=== PATIENT | male | born 1965 | race Two or more races ===

== ENCOUNTER 2023-06-11 15:46 | Inpatient (IN) | payer OTHER ==
[2023-06-11] MEDS ORDERED: ACETAMINOPHEN 500 MG TABLET (FP) PO ONE (16:46)
[2023-06-11] MEDS ORDERED: ASPIRIN 81 MG CHEWABLE TABLETS PO ONE (17:02)
[2023-06-11] MEDS ORDERED: ASPIRIN 81 MG CHEWABLE TABLETS ONE (17:31)
[2023-06-11] MEDS ORDERED: ACETAMINOPHEN 500 MG TABLET (FP) ONE (17:32)
[2023-06-11 18:51] LABS: BASO % 0.6 % (0-2.0); EOS % 0.9 % (0-4.5); HEMATOCRIT 37.2 % (35.4-49); HEMOGLOBIN 12.6 GM/dL (11.7-16.9); LYMPH % 29.6 % (8-40); MCH 28.6 pg (25.7-33.7); MCHC 33.8 g/dl (32.0-35.9); MEAN CELL VOLUME 84.7 fl (80-96); MEAN PLT VOLUME 8.4 fl (7.5-11.1); MONO % 7.8 % (3.8-10.2); NEUT % 61.1 % (42.8-82.8); PLATELET COUNT 263 10^3/uL (134-434); RBC 4.39 M/mm3 (4.00-5.60); RDW 14.3 % (11.9-15.9); WHITE BLOOD COUNT 7.6 K/mm3 (4.0-10.0)
[2023-06-11 18:57] LABS: INR 1.06 (0.83-1.09); PROTHROMBIN TIME (PATIENT) 12.3 SEC (9.7-13.0)
[2023-06-11 18:59] LABS: ACTIVATED PTT 29.6 SECONDS (25.2-36.5)
[2023-06-11 19:15] LABS: POTASSIUM 3.4 mmol/L (3.5-5.1)
[2023-06-11 19:16] LABS: CALCIUM 8.4 mg/dL (8.5-10.1)
[2023-06-11 19:17] LABS: ALBUMIN 3.2 g/dl (3.4-5.0); BLOOD UREA NITROGEN 24.8 mg/dL (7-18); MAGNESIUM 1.9 mg/dL (1.8-2.4)
[2023-06-11 19:20] LABS: CREATININE 1.1 mg/dL (0.55-1.3)
[2023-06-11 19:21] LABS: BILIRUBIN,TOTAL 0.3 mg/dL (0.2-1)
[2023-06-11 19:22] LABS: TOT PROT 6.9 g/dl (6.4-8.2)
[2023-06-11] MEDS ORDERED: hydrALAZINE HCL 50 MG TABLET (FP) PO SCH (23:15)
[2023-06-11 23:48] VITALS: BMI 36.6
[2023-06-12] MEDS ORDERED: ACETAMINOPHEN 325 MG TABLET (FP) PO PRN (00:02)
[2023-06-12] MEDS ORDERED: hydrALAZINE HCL 20 MG/ML VIAL IVPUSH ONE (03:30)
[2023-06-12 07:04] LABS: HEMATOCRIT 38.2 % (35.4-49); HEMOGLOBIN 12.7 GM/dL (11.7-16.9); MCH 28.5 pg (25.7-33.7); MCHC 33.2 g/dl (32.0-35.9); MEAN CELL VOLUME 85.7 fl (80-96); MEAN PLT VOLUME 8.5 fl (7.5-11.1); PLATELET COUNT 255 10^3/uL (134-434); RBC 4.46 M/mm3 (4.00-5.60); RDW 14.1 % (11.9-15.9); WHITE BLOOD COUNT 6.2 K/mm3 (4.0-10.0)
[2023-06-12 07:20] LABS: CHLORIDE 104 mmol/L (98-107); SODIUM 142 mmol/L (136-145)
[2023-06-12 07:23] LABS: CALCIUM 8.5 mg/dL (8.5-10.1)
[2023-06-12 07:24] LABS: BLOOD UREA NITROGEN 17.8 mg/dL (7-18); CO2 34 mmol/L (21-32); GLUCOSE,RANDOM 108 mg/dL (74-106)
[2023-06-12 07:33] LABS: CREATININE 0.9 mg/dL (0.55-1.3)
[2023-06-12 08:03] LABS: ANION GAP 5 MMOL/L (8-16); POTASSIUM 2.9 mmol/L (3.5-5.1)
[2023-06-12] MEDS: KCL 10 MEQ IVPB 10 MEQ/100 ML INFUS.BAG IVPB SCH ×3 (09:18→14:46)
[2023-06-12] MEDS: hydrALAZINE HCL 25 MG TABLET (FP) PO SCH ×2 (09:18→21:44)
[2023-06-12] MEDS: NIFEdipine E.R 60 MG TABLET PO SCH (09:19)
[2023-06-12] MEDS: LISINOPRIL 20 MG TABLET PO SCH (09:19)
[2023-06-12] MEDS ORDERED: HYDROCHLOROTHIAZIDE 25 MG TABLET (FP) PO SCH (10:00)
[2023-06-12] MEDS ORDERED: POTASSIUM CHLORIDE ORAL LIQUID 20 MEQ/15 ML PO ONE (11:37)
[2023-06-12] MEDS: NAPROXEN 500 MG TABLET PO SCH (21:45)
[2023-06-13 07:18] LABS: BASO % 0.5 % (0-2.0); EOS % 1.4 % (0-4.5); HEMATOCRIT 41.2 % (35.4-49); HEMOGLOBIN 13.7 GM/dL (11.7-16.9); LYMPH % 40.2 % (8-40); MCH 28.3 pg (25.7-33.7); MCHC 33.2 g/dl (32.0-35.9); MEAN CELL VOLUME 85.2 fl (80-96); MEAN PLT VOLUME 8.6 fl (7.5-11.1); MONO % 9.6 % (3.8-10.2); NEUT % 48.3 % (42.8-82.8); PLATELET COUNT 281 10^3/uL (134-434); RBC 4.83 M/mm3 (4.00-5.60); RDW 14.1 % (11.9-15.9); WHITE BLOOD COUNT 6.6 K/mm3 (4.0-10.0)
[2023-06-13 07:31] LABS: CHLORIDE 100 mmol/L (98-107); SODIUM 140 mmol/L (136-145)
[2023-06-13 07:34] LABS: ALBUMIN 3.6 g/dl (3.4-5.0); BLOOD UREA NITROGEN 14.6 mg/dL (7-18); CALCIUM 8.6 mg/dL (8.5-10.1); CO2 31 mmol/L (21-32); GLUCOSE,RANDOM 116 mg/dL (74-106); MAGNESIUM 1.7 mg/dL (1.8-2.4)
[2023-06-13 07:37] LABS: CREATININE 0.9 mg/dL (0.55-1.3); PHOSPHOROUS 3.3 mg/dL (2.5-4.9); SGOT/AST 24 U/L (15-37)
[2023-06-13 07:38] LABS: SGPT/ALT 49 U/L (13-61)
[2023-06-13 07:39] LABS: BILIRUBIN,TOTAL 0.5 mg/dL (0.2-1); TOT PROT 7.3 g/dl (6.4-8.2)
[2023-06-13 07:40] LABS: ALK PHOS 90 U/L (45-117); ANION GAP 9 MMOL/L (8-16); POTASSIUM 2.9 mmol/L (3.5-5.1)
[2023-06-13] MEDS ORDERED: MAGNESIUM SULF 50% (8.12 MEQ/2 ML-1 GM VIAL) IVPB ONE (08:27)
[2023-06-13] MEDS ORDERED: POTASSIUM CHLORIDE ORAL LIQUID 20 MEQ/15 ML PO ONE (08:27)
[2023-06-13] MEDS: KCL 10 MEQ IVPB 10 MEQ/100 ML INFUS.BAG IVPB SCH ×3 (08:50→13:34)
[2023-06-13] MEDS: NIFEdipine E.R 60 MG TABLET PO SCH (10:34)
[2023-06-13] MEDS: hydrALAZINE HCL 25 MG TABLET (FP) PO SCH ×2 (10:34→23:29)
[2023-06-13] MEDS: LISINOPRIL 20 MG TABLET PO SCH (10:34)
[2023-06-13] MEDS: NAPROXEN 500 MG TABLET PO SCH (10:35)
[2023-06-13] MEDS: TRIAMTERENE AND HCTZ - 37.5 MG/25 MG CAPSULE PO SCH (10:46)
[2023-06-14 09:32] LABS: BASO % 0.7 % (0-2.0); EOS % 3.2 % (0-4.5); HEMOGLOBIN 15.3 GM/dL (11.7-16.9); LYMPH % 39.9 % (8-40); MCH 28.9 pg (25.7-33.7); MEAN CELL VOLUME 84.9 fl (80-96); MEAN PLT VOLUME 7.8 fl (7.5-11.1); MONO % 9.1 % (3.8-10.2); NEUT % 47.1 % (42.8-82.8); PLATELET COUNT 321 10^3/uL (134-434); RDW 14.3 % (11.9-15.9); WHITE BLOOD COUNT 6.8 K/mm3 (4.0-10.0)
[2023-06-14 09:59] LABS: POTASSIUM 3.2 mmol/L (3.5-5.1)
[2023-06-14 10:11] LABS: CALCIUM 9.2 mg/dL (8.5-10.1)
[2023-06-14 10:12] LABS: BLOOD UREA NITROGEN 16.5 mg/dL (7-18)
[2023-06-14] MEDS: LISINOPRIL 20 MG TABLET PO SCH (10:39)
[2023-06-14] MEDS: NIFEdipine E.R 60 MG TABLET PO SCH (10:39)
[2023-06-14] MEDS: hydrALAZINE HCL 25 MG TABLET (FP) PO SCH ×2 (10:39→22:13)
[2023-06-14] MEDS: TRIAMTERENE AND HCTZ - 37.5 MG/25 MG CAPSULE PO SCH (10:39)
[2023-06-14] MEDS ORDERED: MAGNESIUM OXIDE 400 MG TABLET (FP) PO ONE (12:20)
[2023-06-14] MEDS ORDERED: POTASSIUM CHLORIDE ORAL LIQUID 20 MEQ/15 ML PO ONE (12:20)
[2023-06-14] MEDS: KCL 10 MEQ IVPB 10 MEQ/100 ML INFUS.BAG IVPB SCH ×3 (14:08→18:54)
[2023-06-15 06:45] LABS: BASO % 0.6 % (0-2.0); EOS % 3.6 % (0-4.5); HEMATOCRIT 41.4 % (35.4-49); HEMOGLOBIN 13.7 GM/dL (11.7-16.9); LYMPH % 41.1 % (8-40); MCH 28.8 pg (25.7-33.7); MCHC 33.2 g/dl (32.0-35.9); MEAN CELL VOLUME 86.7 fl (80-96); MEAN PLT VOLUME 8.4 fl (7.5-11.1); MONO % 9.8 % (3.8-10.2); NEUT % 44.9 % (42.8-82.8); PLATELET COUNT 289 10^3/uL (134-434); RBC 4.77 M/mm3 (4.00-5.60); RDW 14.4 % (11.9-15.9); WHITE BLOOD COUNT 6.2 K/mm3 (4.0-10.0)
[2023-06-15 07:05] LABS: POTASSIUM 3.6 mmol/L (3.5-5.1)
[2023-06-15 07:06] LABS: CALCIUM 8.6 mg/dL (8.5-10.1)
[2023-06-15 07:07] LABS: BLOOD UREA NITROGEN 17.3 mg/dL (7-18)
[2023-06-15 07:10] LABS: CREATININE 0.8 mg/dL (0.55-1.3)
[2023-06-15] MEDS: hydrALAZINE HCL 25 MG TABLET (FP) PO SCH ×2 (09:19→21:12)
[2023-06-15] MEDS: NIFEdipine E.R 60 MG TABLET PO SCH (09:19)
[2023-06-15] MEDS: TRIAMTERENE AND HCTZ - 37.5 MG/25 MG CAPSULE PO SCH (09:20)
[2023-06-15] MEDS: LISINOPRIL 20 MG TABLET PO SCH (09:20)
[2023-06-15] MEDS ORDERED: NIFEdipine E.R. 30 MG TABLET PO SCH ×2 (10:45→11:00)
[2023-06-15] MEDS ORDERED: NIFEdipine E.R. 30 MG TABLET PO ONE (11:00)
[2023-06-16] MEDS: hydrALAZINE HCL 25 MG TABLET (FP) PO SCH ×2 (09:11→21:05)
[2023-06-16] MEDS: LISINOPRIL 20 MG TABLET PO SCH (09:11)
[2023-06-16] MEDS: TRIAMTERENE AND HCTZ - 37.5 MG/25 MG CAPSULE PO SCH (09:12)
[2023-06-16] MEDS: NIFEdipine E.R. 90 MG TABLET PO SCH (09:12)
[2023-06-16 09:43] LABS: BASO % 0.7 % (0-2.0); EOS % 2.9 % (0-4.5); HEMATOCRIT 39.9 % (35.4-49); HEMOGLOBIN 13.8 GM/dL (11.7-16.9); LYMPH % 36.3 % (8-40); MCH 29.4 pg (25.7-33.7); MCHC 34.6 g/dl (32.0-35.9); MEAN CELL VOLUME 84.8 fl (80-96); MEAN PLT VOLUME 7.9 fl (7.5-11.1); MONO % 11.6 % (3.8-10.2); NEUT % 48.5 % (42.8-82.8); PLATELET COUNT 292 10^3/uL (134-434); RDW 14.2 % (11.9-15.9); WHITE BLOOD COUNT 6.1 K/mm3 (4.0-10.0)
[2023-06-16 10:06] LABS: POTASSIUM 3.8 mmol/L (3.5-5.1)
[2023-06-16 10:11] LABS: ALBUMIN 3.5 g/dl (3.4-5.0); BLOOD UREA NITROGEN 16.4 mg/dL (7-18); CALCIUM 9.2 mg/dL (8.5-10.1)
[2023-06-16 10:14] LABS: CREATININE 0.9 mg/dL (0.55-1.3)
[2023-06-16 10:15] LABS: BILIRUBIN,TOTAL 0.5 mg/dL (0.2-1)
[2023-06-16 10:16] LABS: TOT PROT 7.1 g/dl (6.4-8.2)
[2023-06-17 08:32] LABS: POTASSIUM 3.6 mmol/L (3.5-5.1)
[2023-06-17 08:36] LABS: CALCIUM 9.2 mg/dL (8.5-10.1)
[2023-06-17 08:37] LABS: BLOOD UREA NITROGEN 19.5 mg/dL (7-18)
[2023-06-17] MEDS: hydrALAZINE HCL 25 MG TABLET (FP) PO SCH (09:14)
[2023-06-17] MEDS: LISINOPRIL 20 MG TABLET PO SCH (09:15)
[2023-06-17] MEDS: NIFEdipine E.R. 90 MG TABLET PO SCH (09:15)
[2023-06-17] MEDS: TRIAMTERENE AND HCTZ - 37.5 MG/25 MG CAPSULE PO SCH (09:15)
[2023-06-17 15:08] VITALS: BP 145/84; PULSE 81; RESP 19; TEMP 98.8
[2023-06-17 16:08] LABS: RENIN ACTIVITY(PRA) 0.723 ng/mL/hr (0.167-5.380)
== END 2023-06-17 17:10 | disposition home or self-care (01) | DRG 199 ==
LOC: JER 15:46 → JERBED 19:30 → J4S 21:41 → OBSVTOIN 06-13 15:12
PROVIDERS: ADMIT Family Medicine; ATTEND Family Medicine
DX: I16.0 Hypertensive urgency (principal); E87.6 Hypokalemia; K80.20 Calculus of gallbladder without cholecystitis without obstruction; N28.9 Disorder of kidney and ureter, unspecified; R00.2 Palpitations; Y92.89 Other specified places as the place of occurrence of the external cause; T46.4X5A Adverse effect of angiotensin-converting-enzyme inhibitors, initial encounter; I10 Essential (primary) hypertension
CPT/HCPCS: 36415; 71045-TC-FY; 72126-TC; 74178-TC; 76775-TC; 80048; 80053; 82088; 83735; 83930; 84100; 84244; 84439; 84443; 84484; 85025; 85027; 85610; 85730; 93005; 93010; 93306-TC; 93975; 99285-25; G0378; Q9967

== ENCOUNTER 2024-09-11 13:09 | Emergency (ER) | payer OTHER ==
[2024-09-11 13:18] VITALS: BP 146/86; PULSE 78; RESP 18; TEMP 98.1; BMI 34.5
[2024-09-11] MEDS ORDERED: DEXAMETHASONE SOD PHOSPHATE 10 MG/1 ML VIAL ONE (15:34)
[2024-09-11] MEDS ORDERED: KETOROLAC TROMETHAMINE 30 MG/1 ML VIAL ONE (15:34)
[2024-09-11] MEDS: DEXAMETHASONE SOD PHOSPHATE 10 MG/1 ML VIAL IM ONE (15:40)
[2024-09-11] MEDS: KETOROLAC TROMETHAMINE 30 MG/1 ML VIAL IM ONE (15:41)
== END 2024-09-11 16:57 | disposition home or self-care (01) ==
LOC: JERFT 13:09
PROC: 3E0233Z Introduction of Anti-inflammatory into Muscle, Percutaneous Approach (ICD-10-PCS; principal; 2024-09-11)
PROC: 3E023GC Introduction of Other Therapeutic Substance into Muscle, Percutaneous Approach (ICD-10-PCS; 2024-09-11)
DX: M25.561 Pain in right knee (principal); M25.461 Effusion, right knee; M71.21 Synovial cyst of popliteal space [Baker], right knee
CPT/HCPCS: 73562-TC-RT-FY; 73610-TC-LT-FY; 93971-TC; 99284-25; J1100

== ENCOUNTER 2024-11-12 15:26 | Emergency (ER) | payer OTHER ==
[2024-11-12 16:23] VITALS: BP 133/76; PULSE 88; RESP 20; TEMP 98.6; BMI 34.4
== END 2024-11-12 19:15 | disposition home or self-care (01) ==
LOC: JER 15:26 → JERFT 15:26
DX: M25.462 Effusion, left knee (principal)
CPT/HCPCS: 73562-TC-LT-FY; 93971-TC; 99284-25